=== PATIENT | male | born 1965 | race Caucasian/White ===

== ENCOUNTER 2016-11-12 10:20 | Emergency (ER) | payer BC, OTHER ==
[~2016-11-12] VITALS: Ht 182.9 cm; Wt 105.7 kg
[2016-11-12 10:23] VITALS: BP 139/83
[2016-11-12] MEDS ORDERED: CARBAMIDE PEROXIDE EAR DROPS 6.5%, 15ML EACH EAR ONE (11:00)
[2016-11-12] MEDS ORDERED: CARBAMIDE PEROXIDE EAR DROPS 6.5%, 15ML ONE (11:04)
== END 2016-11-12 12:19 | disposition home or self-care (01) ==
LOC: ED 10:36
DX: H61.23 Impacted cerumen, bilateral (principal)
CPT/HCPCS: 69209